=== PATIENT | male | born 1990 | race African-American/Black ===

== ENCOUNTER 2020-07-27 01:27 | Inpatient (IN) | payer SELFPAY ==
[2020-07-27] MEDS ORDERED: Fentanyl 100 MCG/2 ML VIAL ONE ×2 (01:47→02:24)
[2020-07-27 01:50] LABS: Hemoglobin 12.5 g/dL (14.0-18.0); Mean Corpuscular HGB CONC 33.2 g/dL (32.0-36.0); Mean Corpuscular Volume 90.4 fL (78.0-98.0); Mean Platelet Volume 8.2 fL (7.4-10.4); Platelet Count 283 thou/uL (130-400); RBC Distribution Width 11.9 % (11.5-14.5); Red Blood Cell (RBC) Count 4.16 mill/uL (4.70-6.10)
[2020-07-27 01:58] LABS: PTT 23.1 sec (22.9-36.1); Prothrombin Time 13.5 sec (12.0-14.7)
[2020-07-27 02:01] LABS: Band 4 % (5-11); Lymphocytes 20 % (21-51); MDiff Complete? YES; Monocytes 4 % (0-10); Neutrophil 70 % (42-75); Reactive Lymphocytes 2 % (0-10); White Blood Cell (WBC) Count 22.1 thou/uL (4.8-10.8)
[2020-07-27 02:04] LABS: ALT (SGPT) 27 U/L (8-55); AST (SGOT) 33 U/L (5-34); Albumin 3.6 g/dL (3.5-5.0); Alkaline Phosphatase 56 U/L (40-110); Anion Gap 15 mmol/L (10-20); BUN (Urea Nitrogen) 14 mg/dL (8.9-20.6); Bilirubin, Total 0.2 mg/dL (0.2-1.2); Calc. Creatinine Clearance 0 mL/min (70-130); Calcium 7.9 mg/dL (7.8-10.44); Carbon Dioxide 19 mmol/L (22-29); Chloride 104 mmol/L (98-107); Globulin 2.9 g/dL (2.4-3.5); Glucose 226 mg/dL (70-105); Potassium 3.5 mmol/L (3.5-5.1); Protein, Total 6.5 g/dL (6.0-8.3); Sodium 134 mmol/L (136-145)
[2020-07-27] MEDS ORDERED: Lidocaine 1% w/Epinephrine 1:100K 20 ML VIAL ONE (02:13)
[2020-07-27] MEDS ORDERED: Lidocaine 1% (PF) 30 ML VIAL ONE (02:14)
[2020-07-27] MEDS ORDERED: Ketorolac Tromethamine 30 MG/ML VIAL ONE (02:38)
[2020-07-27 04:43] LABS: Lactic Acid 3.3 mmol/L (0.5-2.2)
[2020-07-27] MEDS ORDERED: Dextrose 50% Abboject 50 ML SYRINGE SLOW IVP PRN (05:30)
[2020-07-27] MEDS ORDERED: Promethazine HCl 25 MG/ML VIAL IM PRN ×2 (05:30)
[2020-07-27] MEDS ORDERED: Dextrose 5% in Water 1,000 ML IV PRN (05:30)
[2020-07-27] MEDS ORDERED: traMADol HCl 50 MG TAB PO PRN (05:30)
[2020-07-27] MEDS ORDERED: Ondansetron ODT 4 MG TAB PO PRN (05:30)
[2020-07-27] MEDS ORDERED: Ondansetron PF 4 MG/2 ML Vial IVP PRN (05:30)
[2020-07-27] MEDS: Sodium Chloride 0.9% 1,000 ML IV SCH ×3 (06:25→22:06)
[2020-07-27] MEDS: Acetaminophen 500 MG TAB PO SCH ×3 (06:26→16:49)
[2020-07-27 08:14] VITALS: BMI 50.5
[2020-07-27] MEDS: traMADol HCl 50 MG TAB PO PRN ×3 (08:53→22:54)
[2020-07-27] MEDS: Famotidine 20 MG TAB PO SCH ×2 (08:55→21:49)
[2020-07-27] MEDS ORDERED: FLUoxetine HCl 20 MG CAP PO SCH (10:00)
[2020-07-27 10:02] LABS: SARS-CoV-2 NAA Rapid Test Not Detected (NotDetected)
[2020-07-27] MEDS ORDERED: Iopamidol-370 76% 500 ML 1 ML ONE (10:56)
[2020-07-27] MEDS: Ibuprofen 600 MG TAB PO PRN ×2 (11:48→22:05)
[2020-07-27] MEDS: Cyclobenzaprine 10 MG TAB PO PRN ×2 (11:48→22:05)
[2020-07-28] MEDS: Acetaminophen 500 MG TAB PO SCH ×2 (01:01→05:02)
[2020-07-28] MEDS: hydrALAZINE 20 MG/ML VIAL SLOW IVP PRN (03:39)
[2020-07-28] MEDS ORDERED: Morphine 2 MG/ML VIAL SLOW IVP SCH ×3 (03:45→16:15)
[2020-07-28] MEDS: traMADol HCl 50 MG TAB PO PRN (05:01)
[2020-07-28 05:16] LABS: #Eosinphils 0.1 thou/uL (0.0-0.7); #Lymphocytes 1.9 thou/uL (1.20-3.40); #Monocytes 1.1 thou/uL (0.11-0.59); #Neutrophils 5.8 thou/uL (1.40-6.50); %Basophils 0.3 % (0.0-1.0); %Eosinophils 0.9 % (0.0-10.0); %Lymphocytes 21.2 % (21.0-51.0); %Monocytes 12.7 % (0.0-10.0); %Neutrophils 64.9 % (42.0-75.0); Hemoglobin 10.3 g/dL (14.0-18.0); Mean Corpuscular HGB CONC 33.1 g/dL (32.0-36.0); Mean Corpuscular Hemoglobin 30.2 pg (27.0-31.0); Mean Corpuscular Volume 91.2 fL (78.0-98.0); Mean Platelet Volume 7.6 fL (7.4-10.4); Platelet Count 230 thou/uL (130-400); Red Blood Cell (RBC) Count 3.39 mill/uL (4.70-6.10); White Blood Cell (WBC) Count 8.9 thou/uL (4.8-10.8)
[2020-07-28 05:33] LABS: Phosphorus 2.4 mg/dL (2.3-4.7)
[2020-07-28 05:37] LABS: Anion Gap 11 mmol/L (10-20); BUN (Urea Nitrogen) 12 mg/dL (8.9-20.6); Calc. Creatinine Clearance 269 mL/min (70-130); Calcium 8.2 mg/dL (7.8-10.44); Carbon Dioxide 22 mmol/L (22-29); Chloride 106 mmol/L (98-107); Glucose 139 mg/dL (70-105); Potassium 4.1 mmol/L (3.5-5.1); Sodium 135 mmol/L (136-145)
[2020-07-28 05:49] LABS: CK (CPK) 4741 U/L (30-200)
[2020-07-28] MEDS: Famotidine 20 MG TAB PO SCH (08:13)
[2020-07-28] MEDS: FLUoxetine HCl 20 MG CAP PO SCH (08:13)
[2020-07-28] MEDS: Cyclobenzaprine 10 MG TAB PO PRN ×2 (08:15→15:49)
[2020-07-28] MEDS ORDERED: Non-Formulary Item 1 EACH (Fluoxetine Hcl [Prozac] 40 MG Capsule) PO SCH (09:00)
[2020-07-28] MEDS ORDERED: Morphine 4 MG/ML VIAL ONE (09:39)
[2020-07-28] MEDS: Ibuprofen 600 MG TAB PO PRN ×2 (09:48→15:58)
[2020-07-28] MEDS: traMADol HCl 50 MG TAB PO SCH ×3 (10:44→21:18)
[2020-07-28] MEDS: Acetaminophen/Codeine 30-300mg Tablet PO PRN ×2 (11:48→17:55)
[2020-07-28] MEDS ORDERED: Morphine 2 MG/ML VIAL SLOW IVP PRN (18:00)
[2020-07-28] MEDS: Senokot S 8.6-50 MG TAB PO SCH (20:20)
[2020-07-28] MEDS: Gabapentin 300 MG CAP PO SCH (20:20)
[2020-07-29] MEDS: Acetaminophen/Codeine 30-300mg Tablet PO PRN (00:28)
[2020-07-29] MEDS: hydrALAZINE 20 MG/ML VIAL SLOW IVP PRN ×2 (00:29→08:46)
[2020-07-29] MEDS: Cyclobenzaprine 10 MG TAB PO PRN ×2 (01:18→12:28)
[2020-07-29] MEDS: Ibuprofen 600 MG TAB PO PRN (01:18)
[2020-07-29] MEDS: traMADol HCl 50 MG TAB PO SCH ×4 (03:24→21:08)
[2020-07-29 06:26] LABS: #Eosinphils 0.2 thou/uL (0.0-0.7); #Lymphocytes 1.9 thou/uL (1.20-3.40); #Monocytes 1.1 thou/uL (0.11-0.59); #Neutrophils 5.8 thou/uL (1.40-6.50); %Basophils 0.3 % (0.0-1.0); %Lymphocytes 21.5 % (21.0-51.0); %Monocytes 11.6 % (0.0-10.0); %Neutrophils 64.6 % (42.0-75.0); Hemoglobin 10.1 g/dL (14.0-18.0); Mean Corpuscular HGB CONC 33.6 g/dL (32.0-36.0); Mean Corpuscular Hemoglobin 30.9 pg (27.0-31.0); Mean Platelet Volume 7.8 fL (7.4-10.4); Platelet Count 242 thou/uL (130-400); RBC Distribution Width 12.1 % (11.5-14.5); Red Blood Cell (RBC) Count 3.26 mill/uL (4.70-6.10)
[2020-07-29 06:43] LABS: Lactic Acid 1.5 mmol/L (0.5-2.2)
[2020-07-29 07:21] LABS: Anion Gap 11 mmol/L (10-20); BUN (Urea Nitrogen) 11 mg/dL (8.9-20.6); CK (CPK) 3618 U/L (30-200); Calc. Creatinine Clearance 293 mL/min (70-130); Calcium 8.9 mg/dL (7.8-10.44); Carbon Dioxide 27 mmol/L (22-29); Chloride 106 mmol/L (98-107); Glucose 120 mg/dL (70-105); Magnesium 2.1 mg/dL (1.6-2.6); Phosphorus 3.2 mg/dL (2.3-4.7); Potassium 4.1 mmol/L (3.5-5.1); Sodium 140 mmol/L (136-145)
[2020-07-29] MEDS: Polyethylene Glycol 3350 17 GM Packet PO SCH (08:44)
[2020-07-29] MEDS: FLUoxetine HCl 20 MG CAP PO SCH (08:45)
[2020-07-29] MEDS: Gabapentin 300 MG CAP PO SCH ×3 (08:45→21:09)
[2020-07-29] MEDS: Senokot S 8.6-50 MG TAB PO SCH ×2 (08:45→21:09)
[2020-07-29] MEDS: Amlodipine 5 MG TAB PO SCH (09:32)
[2020-07-29] MEDS: Enoxaparin Sodium 30 MG/0.3 ML SYRINGE SC SCH ×2 (09:32→21:09)
[2020-07-29] MEDS: Acetaminophen 500 MG TAB PO SCH ×2 (12:26→17:44)
[2020-07-29] MEDS: Ibuprofen 200 MG TAB PO SCH ×2 (12:27→17:44)
[2020-07-30] MEDS: Ibuprofen 200 MG TAB PO SCH ×3 (00:27→12:33)
[2020-07-30] MEDS: Acetaminophen 500 MG TAB PO SCH ×3 (00:27→12:33)
[2020-07-30] MEDS: traMADol HCl 50 MG TAB PO SCH ×2 (03:36→08:51)
[2020-07-30 08:00] VITALS: TEMP 98.7
[2020-07-30] MEDS: Polyethylene Glycol 3350 17 GM Packet PO SCH (08:47)
[2020-07-30] MEDS: Enoxaparin Sodium 30 MG/0.3 ML SYRINGE SC SCH (08:47)
[2020-07-30] MEDS: Amlodipine 5 MG TAB PO SCH (08:48)
[2020-07-30] MEDS: FLUoxetine HCl 20 MG CAP PO SCH (08:48)
[2020-07-30] MEDS: Senokot S 8.6-50 MG TAB PO SCH (08:49)
[2020-07-30] MEDS: Gabapentin 300 MG CAP PO SCH (08:49)
[2020-07-30 11:25] VITALS: BP 143/78
== END 2020-07-30 13:50 | disposition home or self-care (01) | DRG 964 ==
LOC: ERS 01:27 → SURG B 02:07 → EEVIPCON 02:07 → SURG A 05:33
PROVIDERS: ADMIT Surgery; ATTEND Surgery
PROC: 0W9B30Z Drainage of Left Pleural Cavity with Drainage Device, Percutaneous Approach (ICD-10-PCS; principal; 2020-07-27)
DX: S27.2XXA Traumatic hemopneumothorax, initial encounter (principal); S22.20XA Unspecified fracture of sternum, initial encounter for closed fracture; T79.6XXA Traumatic ischemia of muscle, initial encounter; S22.32XA Fracture of one rib, left side, initial encounter for closed fracture; Z68.43 Body mass index [BMI] 50.0-59.9, adult; S27.322A Contusion of lung, bilateral, initial encounter; E87.2 Acidosis; D62 Acute posthemorrhagic anemia; Z20.822 Contact with and (suspected) exposure to COVID-19; Z79.899 Other long term (current) drug therapy; F41.9 Anxiety disorder, unspecified; E66.01 Morbid (severe) obesity due to excess calories; X95.9XXA Assault by unspecified firearm discharge, initial encounter; S71.131A Puncture wound without foreign body, right thigh, initial encounter; S41.041A Puncture wound with foreign body of right shoulder, initial encounter; S41.142A Puncture wound with foreign body of left upper arm, initial encounter; S20.219A Contusion of unspecified front wall of thorax, initial encounter; I10 Essential (primary) hypertension; F32.9 Major depressive disorder, single episode, unspecified
CPT/HCPCS: 32551; 36415; 70498; 71045; 71260; 72170; 74018; 74177; 80048; 80053; 82550; 83605; 83735; 84100; 85025; 85610; 85730; 86850; 86900; 86901; 90471; 93306; 94640; 96365; 96375; 96376; 99292; G0390; J0360; J1650; J1885; J2001; J2270; J3010; J7620; Q9967; U0002

== ENCOUNTER 2020-08-12 14:51 | Outpatient (CLI) | payer OTHER | END 2020-08-12 14:52 | disposition home or self-care (01) | LOC: BICRAD 14:51 | PROVIDERS: ATTEND Surgery | DX: S22.39XA Fracture of one rib, unspecified side, initial encounter for closed fracture (principal); W34.00XA Accidental discharge from unspecified firearms or gun, initial encounter | CPT/HCPCS: 71046 ==